=== PATIENT | female | born 1980 | race Caucasian/White ===

== ENCOUNTER 2017-08-28 07:56 | Emergency (ER) | payer SELFPAY ==
[2017-08-28 08:01] VITALS: BP 115/59; BMI 24.3
--- NOTE | 2017-08-28 08:36 | DR.GENAD ---
HPI - PCP Primary Care Physician: CLIVE - HPI Comment HPI Comment: HISTORY BELOW. - Complaint/Symptoms Chief Complaint Doctors Comments: ABDOMINAL PAIN FOR FEW DAYS NOW WITH N/V. RIGHT LOWER 2ND MOLAR IS CHIP OFF, RED GUM AND HURTING. NO FEVER. NO DYSURIA OR DIARRHEA. Chief Complaint:: PATIENT STATED THAT SHE IS HAVING SEVERE ABD. PAIN. SHE STATED THAT SHE ALSO HAVING A TOOTHACHE. SHE HAS SOME N/V WITH THE ABD. PAIN THAT STARTED THIS MORNING. - Nurses notes reviewed Nurses Notes Review: Yes - Source History Provided: Patient - Mode of Arrival Mode of Arrival: Ambulatory - Timing Onset of Chief Complaint: 08/21/17 Came on: Gradually - Duration Duration: Constant Duration: Days, Weeks - Severity Severity: Moderate PMH - PMH Past Medical History: No Past Surgical History: Yes Surgical History: - Family History History of Family Medical Conditions: Yes Family Medical History: Diabetes Mellitus, Cancer, Coronary Artery Disease, Hypertension - Social History Does patient currently use any type of tobacco product: No Have you used tobacco products in the last 12 months: No Type of Tobacco Use: None Does any household member use tobacco: No Alcohol Use: None Do you use any recreational Drugs:: No Lives With: Family Lives Where: Home - infectious screening In the last 2 months have you had wt loss of >10#?: NO Have you had fever, night sweats or hemotysis?: No Have you traveled outside the country in the last 6 months?: No Isolation: Standard ROS - Review of Systems Constitutional: No Symptoms Reported Eyes: No Symptoms Reported ENTM: Mouth Pain (rt lower molar toothache with jaw swelling) Respiratoy: No Symptoms Reported Cardiovascular: No Symptoms Reported Gastrointestinal/Abdominal: Abdominal Pain, Nausea, Vomiting Genitourinary: No Symptoms Reported Neurological: No Symptoms Reported Musculoskeletal: No Symptoms Reported Integumentary: No Symptoms Reported Hematologic/Lymphatic: No Symptoms Reported Endocrine: No Symptoms Reported All Other Systems: Reviewed and Negative PE - Vital Signs Vitals: Temperature 98.0 F Pulse Rate 76 Respiratory Rate 20 Blood Pressure 115/59 O2 Sat by Pulse Oximetry 100 - General Limitations: No Limitations General Appearance: Alert - Head Head Exam: Normal Inspection - Eyes Eye exam: Normal Appearance - ENT ENT Exam: Normal External Ear Exam External Ear Exam: Normal External Inspection TM/Canal Exam: Bilateral Normal Nose Exam: Normal Nose Exam Mouth Exam: Other (RT 2ND MOLAR IS INFLAME, GUM RED.) Throat Exam: Normal Inspection - Neck Neck Exam: Trachea Midline - Chest Chest Inspection: Symmetric Chest Wall Rise - Respiratory Respiratory Exam: Normal Lung Sounds Bilat Respiratory Exam: Bilateral Clear to Auscultation - Cardiovascular Cardiovascular Exam: Regular Rate, Normal Rhythm, Normal Heart Sounds - Abdominal Exam Abdominal Exam: Normal Bowel Sounds, Soft, Tenderness Abdominal Tenderness: Epigastrium, Moderate - Extremities Extremities Exam: Normal Inspection - Back Back Exam: Normal Inspection - Neurologic Neurological Exam: Alert, Oriented X3 - Psychiatric Psychiatric Exam: Normal Affect, Normal Mood - Skin Skin Exam: Normal Color MDM - Additional Information Additional Information Obtained From: Family - Differential Diagnosis Differential Diagnosis: TOOTHACHE, ABDOMINAL PAIN, GINGIVITIS Course - Treatment Treatment: SEE ORDERS. - Education/Counseling Education/Counseling: Patient, Education Educated On: Diagnosis, Needs for Follow Up ROR - Labs Reviewed Laboratory Results Reviewed?: Yes Result Diagrams: 08/28/17 08:40 08/28/17 08:40 Laboratory: WBC 6.1 X10^3/uL (3.6-10.0) 08/28/17 08:40 RBC 4.52 X10^6/uL (3.5-5.4) 08/28/17 08:40 Hgb 12.5 g/dL (12.0-16.0) 08/28/17 08:40 Hct 37.8 % (36.0-47.0) 08/28/17 08:40 MCV 83.6 fL (80.0-100.0) 08/28/17 08:40 MCH 27.6 pg (27.0-34.0) 08/28/17 08:40 MCHC 33.0 g/dL (33.0-35.0) 08/28/17 08:40 RDW 14.7 % (11.6-16.5) 08/28/17 08:40 Plt Count 299 X10^3/uL (150.0-450.0) 08/28/17 08:40 MPV 7.8 fL (7.4-11.0) 08/28/17 08:40 Neut % 60.2 % (42.0-75.0) 08/28/17 08:40 Lymph % 32.5 % (21.0-51.0) 08/28/17 08:40 [place] % 6.5 % (0.0-13.0) 08/28/17 08:40 Eos % 0.2 % (0.9-2.9) L 08/28/17 08:40 Baso % 0.6 % (0.2-1.0) 08/28/17 08:40 Neut # 3.7 x10^3/uL (2.2-4.8) 08/28/17 08:40 Lymph # 2.0 X10^3/uL (1.3-2.9) 08/28/17 08:40 [place] # 0.4 x10^3/uL (0.3-0.8) 08/28/17 08:40 Eos # 0.0 x10^3/uL (0.0-0.2) 08/28/17 08:40 Baso # 0.0 X10^3/uL (0.0-0.1) 08/28/17 08:40 Absolute Nucleated RBC 0.0 /100WBC 08/28/17 08:40 Sodium 139 mmol/L (136-145) 08/28/17 08:40 Corrected Sodium TNP 08/28/17 08:40 Potassium 4.4 mmol/L (3.5-5.1) 08/28/17 08:40 Chloride 106 mmol/L (98-107) 08/28/17 08:40 Carbon Dioxide 25.8 mmol/L (21-32) 08/28/17 08:40 BUN 12 mg/dL (7-18) 08/28/17 08:40 Creatinine 0.76 mg/dL (0.55-1.02) 08/28/17 08:40 Est GFR (MDRD) Af Amer > 60 (>60) 08/28/17 08:40 Est GFR (MDRD) Non-Af > 60 (>60) 08/28/17 08:40 Glucose 94 mg/dL (65-99) 08/28/17 08:40 Calcium 8.7 mg/dL (8.5-10.1) 08/28/17 08:40 Corrected Calcium TNP 08/28/17 08:40 Total Bilirubin 0.20 mg/dL (0.2-1.0) 08/28/17 08:40 AST 30 Units/L (15-37) 08/28/17 08:40 ALT 40 Units/L (12-78) 08/28/17 08:40 Alkaline Phosphatase 90 Units/L (46-116) 08/28/17 08:40 Total Protein 7.7 g/dL (6.4-8.2) 08/28/17 08:40 Albumin 3.8 g/dL (3.4-5.0) 08/28/17 08:40 Globulin 3.9 g/dL (2.5-4.5) 08/28/17 08:40 Albumin/Globulin Ratio 1.0 Ratio (1.1-2.1) L 08/28/17 08:40 Amylase 48 Units/L (25-115) 08/28/17 08:40 Lipase 125 Units/L (73-393) 08/28/17 08:40 Specimen Type Clean catch urine 08/28/17 08:39 Urine Color Yellow (YELLOW) 08/28/17 08:39 Urine Appearance Clear (CLEAR) 08/28/17 08:39 Urine pH 5.0 (5.0 - 8.0) 08/28/17 08:39 Ur Specific [place] 1.020 (1.000-1.030) 08/28/17 08:39 Urine Protein 1+ (NEGATIVE) 08/28/17 08:39 Urine Glucose (UA) Negative (NEGATIVE) 08/28/17 08:39 Urine Ketones Negative (NEGATIVE) 08/28/17 08:39 Urine Occult Blood 1+ (NEGATIVE) 08/28/17 08:39 Urine Nitrite Negative (NEGATIVE) 08/28/17 08:39 Urine Bilirubin Negative (NEGATIVE) 08/28/17 08:39 Urine Urobilinogen Normal (NORMAL) 08/28/17 08:39 Ur Leukocyte Esterase Negative (NEGATIVE) 08/28/17 08:39 Urine RBC 01 - 03 /HPF (NEGATIVE) 08/28/17 08:39 Urine WBC 03 - 06 /HPF (NEGATIVE) 08/28/17 08:39 Ur Squamous Epith Cells Moderate /HPF (NEGATIVE) 08/28/17 08:39 Amorphous Sediment Trace /HPF (NEGATIVE) 08/28/17 08:39 Urine Bacteria Negative /HPF (NEGATIVE) 08/28/17 08:39 Urine Mucus Moderate /HPF (NEGATIVE) 08/28/17 08:39 Ur Culture Indicated? No/not indicated 08/28/17 08:39 H. pylori IgG Antibody Negative (NEGATIVE) 08/28/17 08:40 - XRAY XRAY Findings: REPORT DISCUSS WITH PATIENT. - Diagnosis Discharge Problem: Abdominal pain, Toothache, Gingivitis - Discharge Plan Disposition: 01 HOME, SELF-CARE Condition: Stable Prescriptions: Amoxicillin [Amoxil 875 mg] 875 mg PO Q12H #20 tab Ketorolac Tromethamine [Toradol Tab] 10 mg PO Q8H PRN #15 tab PRN Reason: Pain Ranitidine HCl [ZANTAC TAB 150 MG *] 150 mg PO BID #30 tab - Follow ups/Referrals Follow ups/Referrals: CLIVE,[place] [Primary Care Provider] - 3 days MECHE PLUNKETT [STAFF PHYSICIAN] - 3 days - Instructions Instructions: Gingivitis, [id number], Abdominal Pain, Adult, [id number] Additional Instructions: RETURN TO ED IF WORSE. FOLLOW UP WITH DENTIST OF YOUR CHOICE WITHIN 3 DAYS
[2017-08-28 08:45] LABS: BASOPHILS % (AUTO) 0.6 % (0.2-1.0); EOSINOPHILS % (AUTO) 0.2 % (0.9-2.9); HEMATOCRIT 37.8 % (36.0-47.0); HEMOGLOBIN 12.5 g/dL (12.0-16.0); LYMPHOCYTES % (AUTO) 32.5 % (21.0-51.0); MEAN CORPUSCULAR HEMOGLOBIN 27.6 pg (27.0-34.0); MEAN CORPUSCULAR VOLUME 83.6 fL (80.0-100.0); MEAN PLATELET VOLUME 7.8 fL (7.4-11.0); MONOCYTES # (AUTO) 0.4 x10^3/uL (0.3-0.8); MONOCYTES % (AUTO) 6.5 % (0.0-13.0); NEUTROPHILS # (AUTO) 3.7 x10^3/uL (2.2-4.8); NEUTROPHILS % (AUTO) 60.2 % (42.0-75.0); PLATELET COUNT 299 X10^3/uL (150.0-450.0); RED BLOOD COUNT 4.52 X10^6/uL (3.5-5.4); RED CELL DISTRIBUTION WIDTH 14.7 % (11.6-16.5); WHITE BLOOD COUNT 6.1 X10^3/uL (3.6-10.0)
[2017-08-28 08:58] LABS: BILIRUBIN,URINE NEGATIVE (NEGATIVE); BLOOD/HEMOGLOBIN,URINE 1+ (NEGATIVE); GLUCOSE, URINE NEGATIVE (NEGATIVE); KETONES,URINE NEGATIVE (NEGATIVE); LEUKOCYTE ESTERASE ,URINE NEGATIVE (NEGATIVE); NITRITES,URINE NEGATIVE (NEGATIVE); PROTEIN,URINE 1+ (NEGATIVE); UROBILINOGEN,URINE NORMAL (NORMAL)
[2017-08-28 08:58] LABS: ALANINE AMINOTRANSFERASE 40 Units/L (12-78); ALBUMIN 3.8 g/dL (3.4-5.0); ALKALINE PHOSPHATASE 90 Units/L (46-116); AMYLASE 48 Units/L (25-115); ASPARTATE AMINO TRANSFERASE 30 Units/L (15-37); BLOOD UREA NITROGEN 12 mg/dL (7-18); CALCIUM 8.7 mg/dL (8.5-10.1); CARBON DIOXIDE 25.8 mmol/L (21-32); CHLORIDE 106 mmol/L (98-107); CREATININE 0.76 mg/dL (0.55-1.02); LIPASE 125 Units/L (73-393); SODIUM 139 mmol/L (136-145); TOTAL PROTEIN 7.7 g/dL (6.4-8.2); eGFR BLACK RACES > 60 (>60); eGFR NON BLACK RACES > 60 (>60)
[2017-08-28 09:02] LABS: APPEARANCE,URINE CLEAR (CLEAR); COLOR,URINE YELLOW (YELLOW)
--- NOTE | 2017-08-28 09:03 | RAD ---
History: Epigastric pain Study: Acute abdominal series Comparison: None Findings: The lungs are clear and the heart and mediastinum are unremarkable. The bowel gas pattern is within normal limits. No abnormal is a soft tissue mass or soft tissue calci fication is demonstrated. No significant bony abnormality is demonstrated. Impression: Negative Reported By:
[2017-08-28 09:08] LABS: AMORPHOUS SEDIMENT,UR TRACE /HPF (NEGATIVE); BACTERIA,URINE NEGATIVE /HPF (NEGATIVE); SQUAMOUS EPITHELIAL CELL,UR MODERATE /HPF (NEGATIVE)
[2017-08-28 09:09] LABS: MUCUS,URINE MODERATE /HPF (NEGATIVE)
== END 2017-08-28 09:33 | disposition home or self-care (01) ==
LOC: ER 08:10
DX: R10.13 Epigastric pain (principal); K08.89 Other specified disorders of teeth and supporting structures; K05.10 Chronic gingivitis, plaque induced
CPT/HCPCS: 36415; 74022; 80053; 81001; 82150; 83690; 85025; 86677; 99282